=== PATIENT | female | born 1985 | race Hispanic/Latino ===

== ENCOUNTER 2019-10-05 15:34 | Emergency (ER) | payer OTHER ==
[2019-10-05] MEDS ORDERED: NA CHLORIDE 0.9% 1,000 ML ONE (16:06)
[2019-10-05 16:20] LABS: Absolute Lymphocytes (CBC) 2.3 K/uL (0.7-4.9); Basophils % 0.4 % (0-1.3); Hematocrit 37.5 % (36.0-45.0); Lymphocytes % 23.3 % (15.3-44.8); MPV 9.2 fL (7.6-11.3); RBC Red Blood Cell Count 4.08 M/uL (3.86-4.86)
[2019-10-05 17:03] LABS: BUN Blood Urea Nitrogen 11 mg/dL (7-18); Bicarbonate 23 mmol/L (21-32); Glucose Level 99 mg/dL (74-106); HCG, Quantitative 62359 mIU/mL (1-3); Potassium 3.6 mmol/L (3.5-5.1); Sodium Level 138 mmol/L (136-145)
[2019-10-05 17:47] LABS: Urine Bacteria NONE SEEN /HPF (<20); Urine Culture Reflex Order NOT NEEDED
--- NOTE | 2019-10-05 17:58 | EDPHYS ---
Physician Documentation [facility] Name: Mayo Cleveland Age: 34 yrs Sex: Female : 1985 Arrival Date: 10/05/2019 Time: 15:36 Bed 15 Private MD: ED Physician Chace Epps HPI: 10/05 16:00 This 34 yrs old Female presents to ER via Ambulatory with complaints of pm1 Vaginal Bleeding, + Preg <12wks. 16:00 The patient presents to the emergency department with vaginal bleeding, that is light, pm1 reports using 1 pads or tampons per day. 16:00 The estimated gestational age is 8 weeks. course: care: at a clinic, pm1 Ultrasound: the patient had an ultrasound. Previous pregnancies: in previous pregnancies patient has had no complications. Associated signs and symptoms: Pertinent negatives: abdominal pain, chest pain, diarrhea, dysuria, fever, nausea, vomiting. completed ABX therapy of UTI 1 week ago. Presents today with vaginal bleeding onset last night. Light spotting, has used only one pad. No clots. No abdominal pain present. MANAGER ADMINISTRATION: 16:00 4, Full Term 2, 1, Living 2 pm1 18:10 LMP 07/2019 mg2 Historical: - Allergies: 15:51 No Known Allergies; ss - Home Meds: 15:51 Vitamin Oral tab 1 tab once daily [Active]; ss - PMHx: 15:51 None; ss - PSHx: 15:51 None; ss - Immunization history:: Adult Immunizations up to date. - Coronavirus screen:: The patient has NOT traveled to [place], [place], or [place] in the past 14 days. Proceed with normal triage process as indicated. - Social history:: Smoking status: Patient denies any tobacco usage or history of. - Ebola Screening: : Patient denies exposure to infectious person Patient denies travel to an Ebola-affected area in the 21 days before illness onset. ROS: 17:32 Constitutional: Negative for fever, chills, and weight loss, Cardiovascular: Negative pm1 for chest pain, palpitations, and edema, Respiratory: Negative for shortness of breath, cough, wheezing, and pleuritic chest pain, Abdomen/GI: Negative for abdominal pain, nausea, vomiting, diarrhea, and constipation, Back: Negative for injury and pain. 17:32 MS/Extremity: Negative for injury and deformity, Skin: Negative for injury, rash, and discoloration. 17:32 Neuro: Negative for headache, weakness, numbness, tingling, and seizure. 17:32 : Positive for vaginal bleeding, Negative for urinary symptoms, flank pain. Exam: 17:32 Constitutional: This is a well developed, well nourished patient who is awake, alert, pm1 and in no acute distress. Head/Face: Normocephalic, atraumatic. Neck: Trachea midline, no thyromegaly or masses palpated, and no cervical lymphadenopathy. Supple, full range of motion without nuchal rigidity, or vertebral point tenderness. No Meningismus. Chest/axilla: Normal chest wall appearance and motion. Nontender with no deformity. No lesions are appreciated. Cardiovascular: Regular rate and rhythm with a normal S1 and S2. No gallops, murmurs, or rubs. Normal PMI, no JVD. No pulse deficits. Respiratory: Lungs have equal breath sounds bilaterally, clear to auscultation and percussion. No rales, rhonchi or wheezes noted. No increased work of breathing, no retractions or nasal flaring. Abdomen/GI: Soft, non-tender, with normal bowel sounds. No distension or tympany. No guarding or rebound. No evidence of tenderness throughout. Back: No spinal tenderness. No costovertebral tenderness. Full range of motion. Skin: Warm, dry with normal turgor. Normal color with no rashes, no lesions, and no evidence of cellulitis. MS/ Extremity: Pulses equal, no cyanosis. Neurovascular intact. Full, normal range of motion. 17:32 Neuro: Orientation: is normal, Motor: is normal, moves all fours. Vital Signs: 15:47 BP 119 / 72; Pulse 78; Resp 14; Temp 97.7(TE); Pulse Ox 98% on R/A; Weight 63.5 kg; ss Height 5 ft. 2 in. (157.48 cm); 15:47 Pain 0/10; ss 17:04 BP 106 / 79; Pulse 80; Resp 17; Pulse Ox 100% on R/A; mg2 18:09 BP 110 / 76; Pulse 85; Resp 18; Temp 98; Pulse Ox 100% on R/A; mg2 15:47 Body Mass Index 25.61 (63.50 kg, 157.48 cm) ss MDM: 15:37 Patient medically screened. pm1 17:33 Data reviewed: vital signs. Data interpreted: Pulse oximetry: on room air is 100 %. pm1 Interpretation: normal. 17:57 Counseling: I had a detailed discussion with the patient and/or guardian regarding: the pm1 historical points, exam findings, and any diagnostic results supporting the discharge/admit diagnosis, lab results, radiology results, the need for outpatient follow up, to return to the emergency department if symptoms worsen or persist or if there are any questions or concerns that arise at home. 10/05 16:00 Order name: Quantitative Hcg; Complete Time: 17:11 pm1 10/05 16:00 Order name: Abo/rh Typing; Complete Time: 17:15 pm1 10/05 16:00 Order name: Basic Metabolic Panel; Complete Time: 17:11 pm10/05 16:00 Order name: CBC with Diff; Complete Time: 16:23 pm10/05 16:00 Order name: Urine Microscopic Only; Complete Time: 17:57 pm1 10/05 16:01 Order name: Urine Dipstick--Ancillary (enter results) ms 10/05 16:00 Order name: Urine Test (obtain specimen); Complete Time: 16:13 pm10/05 16:00 Order name: IV Saline Lock; Complete Time: 16:13 pm10/05 16:00 Order name: Labs collected and sent; Complete Time: 16:13 pm10/05 16:00 Order name: NPO; Complete Time: 16:13 pm10/05 16:00 Order name: Urine Dipstick-Ancillary (obtain specimen); Complete Time: 16:13 pm10/05 16:01 Order name: Urine --Ancillary (enter results) ms 10/05 16:23 Order name: US Transvaginal Ob; Complete Time: 18:07 pm1 Administered Medications: 16:13 Drug: NS 0.9% 1000 ml Route: IV; Rate: 1000 ml; Site: left antecubital; mg2 18:08 Follow up: Response: No adverse reaction; IV Status: Completed infusion; IV Intake: mg2 1000ml Point of Care Testing: Urine : 18:10 hCG Reading: Positive; Control Reading: Positive; mg2 Disposition: 21:11 Co-signature as Attending Physician, Chace Epps MD I agree with the assessment and kdr plan of care. Disposition: 10/05/19 17:58 Discharged to Home. Impression: Threatened . - Condition is Stable. - Discharge Instructions: Threatened Miscarriage, Pelvic Rest. - Medication Reconciliation Form, Thank You Letter, Antibiotic Education, Prescription Opioid Use form. - Follow up: Emergency Department; When: As needed; Reason: Worsening of condition. Follow up: Private Physician; When: 2 - 3 days; Reason: Recheck today's complaints, Continuance of care, Re-evaluation by your physician. - Problem is new. - Symptoms have improved. Signatures: Dispatcher [employer] EDMS Chace Epps MD MD [facility] Brittany Ayala RN RN ss Abebe Courtney NP MANAGER REVIEW pm1 Ronaldo Walsh RN RN mg2 Corrections: (The following items were deleted from the chart) 18:11 17:58 10/05/2019 17:58 Discharged to Home. Impression: Threatened . Condition mg2 is Stable. Forms are Medication Reconciliation Form, Thank You Letter, Antibiotic Education, Prescription Opioid Use. Follow up: Emergency Department; When: As needed; Reason: Worsening of condition. Follow up: Private Physician; When: 2 - 3 days; Reason: Recheck today's complaints, Continuance of care, Re-evaluation by your physician. Problem is new. Symptoms have improved. pm1
--- NOTE | 2019-10-05 17:58 | ER ---
Nurse's Notes [facility] Name: Mayo Cleveland Age: 34 yrs Sex: Female : 1985 Arrival Date: 10/05/2019 Time: 15:36 Bed 15 Private MD: Diagnosis: Threatened Presentation: 10/05 15:49 Presenting complaint: Patient states: Vaginal bleeding that began last night. Pt ss reports she is 8 weeks . Denies pain. Transition of care: patient was not received from another setting of care. Onset of symptoms was October 04, 2019. Risk Assessment: Do you want to hurt yourself or someone else? Patient reports no desire to harm self or others. Initial Sepsis Screen: Does the patient meet any 2 criteria? No. Patient's initial sepsis screen is negative. Does the patient have a suspected source of infection? No. Patient's initial sepsis screen is negative. Care prior to arrival: None. 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 - Coronavirus screen:: The patient has NOT traveled to [place], [place], or [place] in the past 14 days. Proceed with normal triage process as indicated. - Social history:: Smoking status: Patient denies any tobacco usage or history of. - Ebola Screening: : Patient denies exposure to infectious person Patient denies travel to an Ebola-affected area in the 21 days before illness onset. Screenin:03 Abuse screen: Denies threats or abuse. Denies injuries from another. Nutritional mg2 screening: No deficits noted. Tuberculosis screening: No symptoms or risk factors identified. Fall Risk IV access (20 points). Assessment: 17:02 General: Appears in no apparent distress. comfortable, Behavior is calm, cooperative. mg2 Pain: Denies pain. Neuro: Level of Consciousness is awake, alert, obeys commands, Oriented to person, place, time, situation. Cardiovascular: Capillary refill < 3 seconds Patient's skin is warm and dry. Respiratory: Airway is patent Respiratory effort is even, unlabored, Respiratory pattern is regular, symmetrical. GI: No signs and/or symptoms were reported involving the gastrointestinal system. : Reports vaginal bleeding that is with clots, light flow, since yesterday. EENT: No signs and/or symptoms were reported regarding the EENT system. Derm: Skin is intact, is healthy with good turgor, Skin is pink, warm \T\ dry. normal. Musculoskeletal: Circulation, motion, and sensation intact. Capillary refill < 3 seconds. 18:08 Obstetrical Assessment: General assessment: awake and alert. Reassessment: Patient mg2 appears in no apparent distress at this time. Patient is alert, oriented x 3, equal unlabored respirations, skin warm/dry/pink. Vital Signs: 15:47 BP 119 / 72; Pulse 78; Resp 14; Temp 97.7(TE); Pulse Ox 98% on R/A; Weight 63.5 kg; ss Height 5 ft. 2 in. (157.48 cm); 15:47 Pain 0/10; ss 17:04 BP 106 / 79; Pulse 80; Resp 17; Pulse Ox 100% on R/A; mg2 18:09 BP 110 / 76; Pulse 85; Resp 18; Temp 98; Pulse Ox 100% on R/A; mg2 15:47 Body Mass Index 25.61 (63.50 kg, 157.48 cm) ss Vitals: 18:09 Heart Tones ultrasound done. mg2 ED Course: 15:36 Patient arrived in ED. ag5 15:37 Abebe Courtney NP is PHCP. pm1 15:37 Chace Epps MD is Attending Physician. pm1 15:47 Arm band placed on right wrist. ss 15:50 Triage completed. ss 15:58 Ronaldo Walsh, ROSSY is Primary Nurse. mg2 17:04 Patient has correct armband on for positive identification. Pulse ox on. NIBP on. Door mg2 closed. 17:04 No provider procedures requiring assistance completed. Inserted saline lock: 20 gauge mg2 in left antecubital area, using aseptic technique. Blood collected. 17:44 US Transvaginal Ob In Process Unspecified. EDMS 17:44 Ultrasound completed. Patient tolerated well. Notified [facility] [employer] [employer]ER/PA . sg3 18:08 IV discontinued, intact, bleeding controlled, No redness/swelling at site. Pressure mg2 dressing applied. Administered Medications: 16:13 Drug: NS 0.9% 1000 ml Route: IV; Rate: 1000 ml; Site: left antecubital; mg2 18:08 Follow up: Response: No adverse reaction; IV Status: Completed infusion; IV Intake: mg2 1000ml Point of Care Testing: Urine : 18:10 hCG Reading: Positive; Control Reading: Positive; mg2 Intake: 18:08 IV: 1000ml; Total: 1000ml. mg2 Outcome: 17:58 Discharge ordered by . pm1 18:09 Discharged to home ambulatory. mg2 18:09 Condition: stable 18:09 Discharge instructions given to patient, Instructed on discharge instructions, follow up and referral plans. Demonstrated understanding of instructions, follow-up care. 18:11 Patient left the ED. mg2 Signatures: Dispatcher [employer] EDBrittany Glover RN RN ss Abebe Courtney, AMBER [employer] MA[employer]RIER pm1 Patricia Phillip sg3 Ronaldo Walsh RN RN mg2 Lyla Jones ag5
--- NOTE | 2019-10-05 18:04 | RAD REPORT ---
EXAM DESCRIPTION: US - Transvaginal OB - 10/05/2019 5:44 pm CLINICAL HISTORY: with vaginal bleeding COMPARISON: None. FINDINGS: The uterus is retroverted and measures 9 x 6 x 7 centimeters. A normal appearing gestatio nal sac is present within the endometrium. Within this is a yolk sac and pole with a crown-rump length 2.7 centimeters. Cardiac activity 173 beats per minute. 2 centimeters subchorionic bleed Right and left ovary appear normal. . An adnexal mass is not noted. No significant free fluid is seen. IMPRESSION: Single live intrauterine with an estimated gestational age 9 weeks 2 days RADHA 05/07/2020 2 centimeter subchorionic bleed
[2019-10-05 18:36] VITALS: O2SAT 100
[2019-10-05 18:38] VITALS: BP 110/76; TEMP 98
[2019-10-05 20:48] LABS: Urine Blood 2+ (NEG); Urine Glucose NEGATIVE (NEG); Urine Protein NEGATIVE (NEG)
== END 2019-10-05 18:11 | disposition home or self-care (01) ==
LOC: ER 15:34
DX: O20.0 Threatened abortion (principal); Z3A.08 8 weeks gestation of pregnancy
CPT/HCPCS: 96361; 85025; 80048; 36415; 86900; 81025; 86901; 84702; 76817; 96360; 99284; J7030; 81003; 81015

== ENCOUNTER 2020-05-04 07:38 | Inpatient (IN) | payer OTHER ==
[2020-05-04] MEDS ORDERED: Ringers Lactate 1,000 ML IV PRN (07:50)
[2020-05-04] MEDS ORDERED: NA CIT/CITRIC AC 30 ML ORAL UDC PO ONE (07:53)
[2020-05-04] MEDS ORDERED: FAMOTIDINE 20 MG/2 ML VIAL IV ONE (07:53)
[2020-05-04 07:57] LABS: Absolute Lymphocytes (CBC) 2.5 K/uL (0.7-4.9); Basophils % 0.4 % (0-1.3); Hematocrit 33.4 % (36.0-45.0); Lymphocytes % 32.6 % (15.3-44.8); RBC Red Blood Cell Count 3.86 M/uL (3.86-4.86)
[2020-05-04] MEDS ORDERED: Ringers Lactate 1,000 ML IV SCH (08:00)
[2020-05-04] MEDS ORDERED: CEFAZOLIN 2 GM in NA CHLORIDE 0.9% 100 ML IVPB SCH (08:00)
[2020-05-04] MEDS ORDERED: METOCLOPRAMIDE 10 MG/2mL INJ IV SCH (08:00)
[2020-05-04] MEDS ORDERED: MORPHINE SULFATE/PF 1 MG/ML (10 ML AMP) ONE (08:03)
[2020-05-04] MEDS ORDERED: OXYTOCIN 10 UNIT/ML ML IV ONE ×2 (08:03→08:53)
[2020-05-04] MEDS ORDERED: BUPIVACAINE 0.75% (PF) 2 ML SP ONE (08:03)
[2020-05-04] MEDS ORDERED: CARBOPROST TROME 250 MCG/ML IM ONE (08:06)
[2020-05-04] MEDS ORDERED: METHYLERGONOVINE 0.2MG/ML AMP IM ONE (08:06)
[2020-05-04] MEDS ORDERED: LIDOCAINE 1% MPF 5 ML VIAL ONE (08:09)
[2020-05-04] MEDS ORDERED: CEFAZOLIN/SWI 2gm 2 GM/20 ML SYR ONE (08:12)
[2020-05-04] MEDS ORDERED: DIPHENHYDRAMINE 25 MG TAB/CAP PO PRN (09:10)
[2020-05-04] MEDS ORDERED: BISACODYL 10 MG RECTAL SUPP RC PRN (09:10)
[2020-05-04] MEDS ORDERED: ONDANSETRON 4 MG/2 ML VIAL IV PRN (09:10)
[2020-05-04] MEDS ORDERED: Oxycodone HCl/Acetaminophen 1 TAB TAB PO PRN (09:10)
[2020-05-04] MEDS ORDERED: KETOROLAC 30 MG/ML INJ IV PRN (09:10)
[2020-05-04] MEDS ORDERED: CEFAZOLIN 1GM (PREMIX IV) 1 GM/50 ML BAG IV ONE (09:10)
[2020-05-04] MEDS ORDERED: ACETAMINOPHEN 500 MG TAB PO PRN ×2 (09:10)
[2020-05-04] MEDS ORDERED: ONDANSETRON 4 MG (ODT) TAB PO PRN (09:10)
--- NOTE | 2020-05-04 09:37 | PREOPHP ---
Date of Admission: 05/04/2020 History Of Present Illness: A 34-year-old 3, para 2, 40 weeks gestation, followed by an ante at [facility]. She says she called this morning, told them her bag of water she thought it b roken. They told her to come here first instead of [facility]. I will call somebody at [place] and report this. She came into our facility. She is 3 to 4 cm, breech presentation. She is melyssa regula rly. Discussion with the patient and her significant other. She has decided to proceed with cesarea n section. Infection, blood loss, anesthetic complications, injury to bladder, bowel, ureter, postop erative complications, clots in legs, pneumonia discussed. The patient knows fully well this does no t constitute all the possible problems that could occur during or following surgery. She has had not jv to eat since 2 a.m. Anesthesia is here. Specialist Managers surgeon is here. Pediatric is here. We denise l proceed expeditiously. Family History: She has no significant family history. Allergies: NO ALLERGIES. Physical Examination: HEENT: Clear. Pupils are equal, round, reactive to light and accommodation. Conjunctivae well perf used. No oral, lingual, or buccal lesions. Chest and Lungs: Clear. Heart: Without murmurs, thrills, heaves, rubs. Breasts: Not examined. Abdomen: Term size. Extremities: Clear without edema, cyanosis, or clubbing. Plan: We will proceed with expeditious for breech in labor. KELSIE/ABIEL Voice ID: [id number]
[2020-05-04] MEDS ORDERED: D5LR 1,000 ML with OXYTOCIN 20 UNIT IV SCH ×2 (10:00)
[2020-05-04] MEDS ORDERED: OXYTOCIN/LR 20 UNIT/1,000 ML BAG IV SCH (10:00)
[2020-05-04 10:20] VITALS: BMI 31.8
[2020-05-04] MEDS ORDERED: CEFAZOLIN/SWI 2gm 2 GM/20 ML SYR IV SCH (16:00)
[2020-05-04] MEDS ORDERED: Ringers Lactate 3,000 ML IV ONE (17:52)
--- NOTE | 2020-05-04 19:08 | OP ---
Surgeon: Cayden Burden MD Indications: A 34-year-old 3, para 2, 40 weeks' gestation, followed antepartum with [facility]. This morning, she thought she ruptured membranes, called the [facility] and she was told to co me here instead of there for assessment. This is of course inappropriate. The patient came to our f acility. She is 3 to 4 cm, footling to compound breech. This was discussed with the patient's famil y. We decided to proceed with section. Infection; blood loss; anesthetic complications; in jury to bladder, bowel, ureter; postoperative complications; clots in legs; and pneumonia discussed. The patient knows fully well this does not constitute all the possible problems that could occur dur ing or following surgery. Description Of Procedure: Taken to surgery. Spinal block was performed. Prepping and draping was t hen performed and time-out. The patient was given 2 g of Ancef for prophylaxis. A Pfannenstiel inci sofya was created. The incision was carried to the fascia. The fascia was incised and incision brenda ed transversely bilaterally. Anterior fascial plane was developed with both blunt and sharp dissecti on. Diastasis recti was observed. Peritoneum was entered bluntly. Low-transverse bladder flap deve loped. Low-transverse uterine incision created. 7 pounds 11 ounces female delivered through the inc ision without difficulty. Apgars [address] Silva in pediatric attendance. Cord blood spec imen obtained. Placenta removed manually. Uterus cleared of clot and blood and exteriorized. Cervi vinay os cleared of membranes. Uterus closed with a running lock stitch of 1 chromic, followed by imbr icating stitch of 1 chromic. Small bleeder in the left angle, more of ooze, fulgurated with Bovie. Gutters cleared of clot and blood. Uterus replaced in the peritoneal cavity. Inspection of suture l ine showed no further bleeding. The rectus muscles were reapproximated using 2 stitches of 0 Vicryl. Fascia was closed using 1 Vicryl running from either angle to the midline. Subcutaneous tissue chula sed with 2-0 plain. [place] used for the skin. The patient tolerated all procedures well. Transfer red back to her room in good condition. Final Diagnoses: Term intrauterine , 40 weeks, compound breech presentation, primary bob an section, spinal block anesthesia. KELSIE/ABIEL Voice ID: [id number] Report ID: [id number]
[2020-05-05 01:21] LABS: RPR (Rapid Plasma Reagin) NON-REACT (NON-REACT)
--- NOTE | 2020-05-05 07:51 | PN ---
Mayo Cleveland is a 34-year-old 3, para 2, followed antepartum by [facility], noted to be 4 0 weeks. The patient is doing quite well postoperatively. H and H with expected change. Lochia is normal. We will discontinue Goldberg and IV. Begin p.o. intake. She is having little pruritus from th e spinal block. She knows she can take Benadryl as she needs it, but she does not want to take that right now. Full postop talk. The patient knows I need to see her 1 week after she leaves the hospit al for followup. We will go over that again before she leaves. Right now, this morning no reported problems. She is nonimmune to Rubella. We will offer rubella immunization before she leaves the hos pital as well as Tdap. No post spinal block problems at this point. KELSIE/ABIEL Voice ID: [id number] Report ID: [id number]
[2020-05-05] MEDS: IBUPROFEN 600 MG TAB PO PRN ×2 (09:24→20:05)
[2020-05-05] MEDS: MAGNESIUM HYDROXIDE 8% 30 ML PO PRN ×2 (09:38→22:11)
[2020-05-05] MEDS: Oxycodone HCl/Acetaminophen 1 TAB TAB PO PRN ×2 (18:16→22:08)
[2020-05-05] MEDS ORDERED: NA CIT/CITRIC AC 30 ML ORAL UDC ONE (20:05)
[2020-05-06] MEDS: Oxycodone HCl/Acetaminophen 1 TAB TAB PO PRN (04:40)
--- NOTE | 2020-05-06 07:58 | DS ---
A 34-year-old 3, para 2, followed antepartum with [facility], 40 weeks' gestation. Called [facility] the day of delivery, told them she thought her membranes had ruptured and that she was in early labor. They told her to come here to be evaluated instead of their clinic. When the patient w as assessed, she was 3 to 4 cm and compound breech presentation. After discussion with the patient a nd , we decided to proceed with section. This was done under spinal block anesthesia . She was delivered of a 7 pounds 11 ounces infant, Apgars 9 and 9. Routine blood loss. , afebrile, ambulating, voiding. She is Rh positive, nonimmune to rubella. This will be offered bef ore she is dismissed. COVID negative. Strep negative. Dismissed with tramadol for analgesia, altho ugh she may elect to take Motrin instead. She has elected to come to my office next week for staple removal and we will discuss contraception at that time. Final Diagnoses: Term intrauterine , 40 weeks, [facility] patient drop in, compound breech, prima ry section, spinal block anesthesia, rubella immunization offered. KELSIE/ABIEL Voice ID: [id number] Report ID: [id number]
[2020-05-06] MEDS: IBUPROFEN 600 MG TAB PO PRN (08:00)
[2020-05-06] MEDS ORDERED: MEASLES,MUMPS,RUBELLA VAC 0.5ML SQVAC ONE (08:10)
[2020-05-06 10:08] VITALS: BP 118/70; TEMP 97
[2020-05-07 22:18] LABS: HBsAG Nonreactive (Nonreactive)
== END 2020-05-06 09:45 | disposition home or self-care (01) | DRG 788 ==
LOC: 2ND-WC 07:38
PROVIDERS: ADMIT Specialist; ATTEND Specialist
PROC: 10D00Z1 Extraction of Products of Conception, Low, Open Approach (ICD-10-PCS; principal; 2020-05-04 08:30)
DX: O32.1XX0 Maternal care for breech presentation, not applicable or unspecified (principal); Z3A.40 40 weeks gestation of pregnancy; Z37.0 Single live birth; Z03.818 Encounter for observation for suspected exposure to other biological agents ruled out
CPT/HCPCS: 36415; 85014; 85025; 86592; 86900; 86901; 87340; 88307; 90471; 90707; J0690; J2210; J2405; J2590; J2765; J7120; J7121; U0003

== ENCOUNTER 2022-05-16 19:26 | Inpatient (IN) | payer OTHER ==
[2022-05-16 21:11] LABS: Urine Blood 2+ (Negative); Urine Glucose Negative (Negative); Urine Protein Trace (Negative); Urine Specific Gravity <=1.005 (1.005-1.030); Urine pH 6.5 (5.0-7.0)
[2022-05-16] MEDS ORDERED: NA CHLORIDE 0.9% 1,000 ML ONE (21:56)
[2022-05-16] MEDS ORDERED: ONDANSETRON 4 MG/2 ML VIAL ONE (21:56)
[2022-05-16] MEDS ORDERED: ACETAMINOPHEN 500 MG TAB ONE (22:26)
[2022-05-16 23:30] LABS: Absolute Lymphocytes (CBC) 1.7 K/uL (0.7-4.9); Hematocrit 34.5 % (36.0-45.0); Lymphocytes % 11.5 % (15.3-44.8); MPV 8.3 fL (7.6-11.3); RBC Red Blood Cell Count 3.79 M/uL (3.86-4.86)
[2022-05-16 23:32] LABS: Urine Bacteria <20 /HPF (<20); Urine RBC <5 /HPF (None Seen); Urine WBC Clump Occasional /HPF (None Seen)
[2022-05-16 23:38] LABS: Albumin 2.8 g/dL (3.4-5.0); Bilirubin Total 0.6 mg/dL (0.2-1.0); Potassium 3.4 mmol/L (3.5-5.1); Protein, Total 6.7 g/dL (6.4-8.2)
[2022-05-17 00:17] LABS: Urine Specific Gravity/Preg 1.005 (1.005-1.030)
[2022-05-17] MEDS ORDERED: NA CHLORIDE 0.9% 50 ML ONE (00:39)
[2022-05-17] MEDS ORDERED: CEFTRIAXONE 1000 MG/VIAL ONE (00:39)
[2022-05-17] MEDS ORDERED: NA CHLORIDE 0.9% 1,000 ML ONE ×2 (02:23→06:08)
--- NOTE | 2022-05-17 02:48 | RAD REPORT ---
EXAM DESCRIPTION: CTAbdomen Pelvis W Contrast - 05/17/2022 12:22 am CLINICAL HISTORY: lower abdomen pain COMPARISON: No comparisons TECHNIQUE: CT of the abdomen and pelvis was performed. All CT scans are performed using dose optimization technique as appropriate and may include automated exposure control or mA/KV adjustment according to patient size. FINDINGS: Lower chest: No acute abnormality. Liver: No acute abnormality or suspicious lesions. Biliary: No biliary ductal dilatation. Stomach: No significant focal abnormality. Duodenum: No significant focal abnormality. Pancreas: No significant abnormality. Spleen: No significant abnormality. Adrenal: No suspicious lesions. Kidney/ureter: No hydronephrosis. No renal calculi. Patchy enhancement of the left kidney. Retroperitoneum: No retroperitoneal adenopathy. Vascular: No aneurysm. Bowel: No significant focal abnormality. Normal appendix. Peritoneum: No ascites or free air. Bladder: Grossly unremarkable. Reproductive: No adnexal masses. IUD. Bones: No acute fracture. Other: n/a IMPRESSION: Patchy enhancement of the left kidney concerning for pyelonephritis. No abscess. No hydr onephrosis.
--- NOTE | 2022-05-17 03:12 | EDPHYS ---
Physician Documentation [facility] Name: Mayo Cleveland Age: 36 yrs Sex: Female : 1985 Arrival Date: 05/16/2022 Time: 19:31 Bed 24 Private MD: ED Physician Dereje Link HPI: 05/16 21:15 This 36 yrs old Female presents to ER via Ambulatory with complaints of Fever, cp Dizziness, Weakness, Back Pain, Headache, Decreased Appetite. 21:15 The patient reports fever, with an emergency department temperature of 100.6 degrees cp Fahrenheit. Onset: The symptoms/episode began/occurred last week. Associated signs and symptoms: Pertinent positives: abdominal pain, backache, body aches. Severity of symptoms: in the emergency department the symptoms are unchanged despite home interventions. 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 - Social history:: Smoking status: Patient reports the use of cigarette tobacco products, denies chronic smoking, but will smoke occasionally, Patient uses alcohol, occasionally. ROS: 21:20 Constitutional: Positive for body aches, fever, Negative for poor PO intake. cp 21:20 Eyes: Negative for injury, pain, redness, and discharge. cp 21:20 ENT: Negative for drainage from ear(s), ear pain, sore throat, difficulty swallowing, difficulty handling secretions. 21:20 Cardiovascular: Negative for chest pain, palpitations. 21:20 Respiratory: Negative for cough, shortness of breath, wheezing. 21:20 Abdomen/GI: Positive for abdominal pain, Negative for vomiting, diarrhea, constipation. 21:20 Back: Positive for pain at rest. 21:20 : Negative for vaginal bleeding, vaginal discharge. 21:20 Neuro: Positive for weakness, Negative for altered mental status, numbness, tingling. 21:20 All other systems are negative. Exam: 21:25 Constitutional: The patient appears in no acute distress, alert, awake, non-toxic, well cp developed, well nourished. 21:25 Head/Face: Normocephalic, atraumatic. cp 21:25 Eyes: Periorbital structures: appear normal, Conjunctiva: normal, no exudate, no injection, Sclera: no appreciated abnormality, Lids and lashes: appear normal, bilaterally. 21:25 ENT: External ear(s): are unremarkable, Nose: is normal, Mouth: Lips: moist, Oral mucosa: moist, Posterior pharynx: Airway: no evidence of obstruction, patent, erythema, is not appreciated, exudate, is not appreciated. 21:25 Neck: ROM/movement: is normal, is supple, without pain, no range of motions limitations, no meningismus. 21:25 Chest/axilla: Inspection: normal. 21:25 Cardiovascular: Rate: tachycardic, Rhythm: regular. 21:25 Respiratory: the patient does not display signs of respiratory distress, Respirations: normal, no use of accessory muscles, no retractions, labored breathing, is not present, Breath sounds: are clear throughout, no decreased breath sounds, no stridor, no wheezing. 21:25 Abdomen/GI: Inspection: abdomen appears normal, Bowel sounds: active, all quadrants, Palpation: soft, in all quadrants, mild abdominal tenderness, in the right lower quadrant and left lower quadrant, rebound tenderness, is not appreciated, involuntary guarding, is not appreciated. 21:25 Back: pain, that is mild, of the low back area, ROM is normal. 21:25 Neuro: Orientation: to person, place \\T\\ time. Mentation: is normal, Motor: moves all fours, strength is normal, Sensation: is normal. Vital Signs: 19:36 BP 108 / 75; Pulse 107; Resp 18; Temp 99.6(O); Pulse Ox 98% on R/A; Weight 64.41 kg; eh3 Height 5 ft. 2 in. (157.48 cm); Pain 7/10; 21:59 Temp 100.6(O); eh3 22:19 Pain 9/10; eh3 23:10 BP 108 / 65; Pulse 101; Resp 18; Temp 103.2(O); Pulse Ox 99% on R/A; Pain 6/10; eh3 23:51 BP 107 / 58; Pulse 98; Resp 16 S; Temp 100.7(O); Pulse Ox 99% on R/A; as6 05/17 02:17 BP 99 / 68; Pulse 82; Resp 18 S; Temp 98.3(O); Pulse Ox 99% on R/A; as6 05/16 19:36 Body Mass Index 25.97 (64.41 kg, 157.48 cm) eh3 MDM: 05/16 20:58 Patient medically screened. cp 22:00 Differential diagnosis: viral Infection, bacterial infection, bronchitis, pneumonia cp UTI, gastroenteritis, meningitis. 05/17 02:00 ED course: Patient qualifies for severe sepsis due to criteria of: A) urine as source cp of infection. B) temp of 103, HR of 107, WBC of 14.6. C) elevated lactate of 2.4. 03:05 Data reviewed: vital signs, nurses notes, lab test result(s), radiologic studies, CT cp scan, and as a result, I will admit patient. 03:05 Physician consultation: Xiao LAND was contacted at 03:05, regarding admission, to the medical/surgical unit. patient's condition. 05/16 21:09 Order name: CBC with Diff; Complete Time: 23:55 cp 05/16 23:55 Interpretation: Normal except: WBC 14.60; RBC 3.79; HGB 11.7; HCT 34.5; MCV 91.0; MEREDITH% cp 80.8; LYM% 11.5; NEUT A 11.8. 05/16 21:09 Order name: CMP; Complete Time: 23:55 cp 05/16 23:56 Interpretation: Normal except: K 3.4; GLUC 140; BUN 6; ALB 2.8; GLOB 3.9; A/G 0.7. 05/16 21:09 Order name: Lipase; Complete Time: 23:55 cp 05/16 21:09 Order name: Urine Microscopic Only; Complete Time: 23:55 cp 05/17 03:01 Interpretation: Abnormal: UWBC >50. cp 05/16 21:09 Order name: COVID-19 SARS RT PCR (Document "Date of Onset" if Symptomatic); Complete cp Time: :05/16 21:09 Order name: Influenza Screen (a \\T\\ B); Complete Time: 01:21 cp 05/16 21:11 Order name: Urine Dipstick-Ancillary; Complete Time: 22:01 EDMS 05/16 22:01 Interpretation: Normal except: UBLD 2+; UPROT Trace; UESTR 2+. cp 05/16 21:23 Order name: Urine --Ancillary (enter results); Complete Time: 01:21 wm 05/16 23:54 Order name: Urine Culture EDMS 05/16 23:59 Order name: Procalcitonin cp 05/16 23:59 Order name: Lactate cp 05/16 23:59 Order name: Blood Culture Adult (2) cp 05/17 01:07 Order name: Procalcitonin; Complete Time: 01:21 EDMS 05/17 01:15 Order name: Lactate; Complete Time: 01:21 EDMS 05/17 02:09 Interpretation: Reviewed. cp 05/16 21:09 Order name: CT Abd/Pelvis - IV Contrast Only cp 05/16 21:09 Order name: IV Saline Lock; Complete Time: 21:59 cp 05/16 21:09 Order name: Labs collected and sent; Complete Time: 21:59 cp 05/17 02:48 Order name: CT; Complete Time: 03:00 EDMS 05/17 03:16 Order name: Lactate as6 05/17 03:48 Order name: Lactate Sepsis 2 HR Follow-up; Complete Time: 03:53 EDMS 05/17 07:17 Order name: Basic Metabolic Panel EDMS 05/17 07:17 Order name: Magnesium EDMS 05/17 07:18 Order name: CBC with Automated Diff EDMS 05/16 21:09 Order name: Urine Dipstick-Ancillary (obtain specimen); Complete Time: 21:13 cp 05/16 21:09 Order name: Urine Test (obtain specimen); Complete Time: 21:13 cp Administered Medications: 05/16 21:59 Drug: NS 0.9% 1000 ml Route: IV; Rate: 1 bolus; Site: left antecubital; eh3 23:08 Follow up: IV Status: Completed infusion; IV Intake: 1000ml eh3 21:59 Drug: Zofran (Ondansetron) 4 mg Route: IVP; Site: left antecubital; eh3 23:09 Follow up: Response: Nausea is decreased eh3 22:19 Drug: Tylenol 1000 mg Route: PO; eh3 23:08 Follow up: Response: Temperature is increased; Pain is decreased eh3 05/17 00:42 Drug: Rocephin (cefTRIAXone) 1 grams Route: IV; Rate: calculated rate; Site: left as6 antecubital; 07:16 Follow up: Response: No adverse reaction; IV Status: Completed infusion; IV Intake: [id number] 02:18 Drug: NS 0.9% 1000 ml Route: IV; Rate: 1 bolus; Site: left antecubital; 07:16 Follow up: Response: No adverse reaction; IV Status: Completed infusion; IV Intake: as6 1000ml 03:25 Drug: Potassium Effervescent Tablet 25 mEq Route: PO; 07:16 Follow up: Response: No adverse reaction as6 Disposition Summary: 05/17/22 03:11 Hospitalization Ordered Hospitalization Status: Inpatient Admission cp Provider: Manny Snell cp Condition: Stable cp Problem: new cp Symptoms: have improved cp Bed/Room Type: Standard cp Location: Telemetry/MedSurg (Inpatient)(05/17/22 12:35) dw Room Assignment: [facility](05/17/22 12:35) dw Diagnosis - Sepsis, unspecified organism cp - Pyelonephritis acute cp Forms: - Medication Reconciliation Form cp - SBAR form cp Signatures: Dispatcher [employer] EDMS Abi Ramos RN RN dw Page, Corey, PA PA cp Elvira Lee RN RN cg Ricardo Taylor RN RN as6 Brown, Sophia, PA PA sb3 Mackenzie Meneses RN RN eh3 Corrections: (The following items were deleted from the chart) 05/16 22:44 21:53 Abdomen ordered. EDMS EDMS 23:56 23:55 Normal except: K 3.4; GLUC 140; BUN 6. cp cp 05/17 04:25 02:00 ED course: Patient qualifies for severe sepsis due to criteria of: A) urine as cp source of infection, B) temp of 103, HR of 107, WBC of 14.6. C) elevated lactate of . cp 04:28 03:11 Telemetry/MedSurg (Inpatient) cp cg 04:28 03:11 cp cg 12:35 04:28 [facility] ER HOLD cg dw 12:35 04:28 ERHOLD- cg dw
--- NOTE | 2022-05-17 03:12 | ER ---
Nurse's Notes [facility] Name: Mayo Cleveland Age: 36 yrs Sex: Female : 1985 Arrival Date: 05/16/2022 Time: 19:31 Bed 24 Private MD: Diagnosis: Sepsis, unspecified organism;Pyelonephritis acute Presentation: 05/16 19:33 Chief complaint: Patient states: fever, body aches, shaking since Sunday. Ebola Screen: [facility] No symptoms or risks identified at this time. 19:33 Method Of Arrival: Ambulatory 3 19:36 Coronavirus screen: Vaccine status: Patient reports receiving the 2nd dose of the covid eh3 vaccine. No acute neurological deficit is noted. Initial Sepsis Screen: Does the patient meet any 2 criteria? HR > 90 bpm. Does the patient have a suspected source of infection? No. Patient's initial sepsis screen is negative. Risk Assessment: Do you want to hurt yourself or someone else? Patient reports no desire to harm self or others. Onset of symptoms was May 12, 2022. 19:36 Acuity: LEENA 3 eh3 Triage Assessment: 19:38 The onset of the patients symptoms was more than six hours ago. General: Appears in no eh3 apparent distress. comfortable, Behavior is calm, cooperative, appropriate for age. Pain: Complains of pain in left low back and right low back Pain currently is 7 out of 10 on a pain scale. Quality of pain is described as aching, Pain began 2-3 days ago. Is continuous, Alleviated by rest, repositioning, Aggravated by increased activity, Also complains of decreased appetite, nausea, diaphoresis, Current management is with Tylenol. Neuro: Level of Consciousness is awake, alert, obeys commands, Oriented to person, place, time, situation, Reports dizziness, headache in right in left parietal area. Cardiovascular: Capillary refill < 3 seconds Patient's skin is warm and dry. Respiratory: Reports shortness of breath on exertion Airway is patent Respiratory effort is even, unlabored. GI: Abdomen is round non-distended, Reports lower abdominal pain, cramping, nausea. : Reports scant amount of urine, thinks she should be urinating more for how much liquid she's drinking. 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 - Social history:: Smoking status: Patient reports the use of cigarette tobacco products, denies chronic smoking, but will smoke occasionally, Patient uses alcohol, occasionally. Screenin:25 Abuse screen: Denies threats or abuse. Denies injuries from another. Nutritional as6 screening: No deficits noted. Tuberculosis screening: No symptoms or risk factors identified. Fall Risk None identified. Assessment: 23:09 Reassessment: Patient is alert, oriented x 3, equal unlabored respirations, skin eh3 warm/dry/pink. Patient states symptoms have improved. 05/17 13:48 Reassessment: Attempted to call report to ROSSY Conti. Unable to accept report at this vg1 time. Vital Signs: 05/16 19:36 BP 108 / 75; Pulse 107; Resp 18; Temp 99.6(O); Pulse Ox 98% on R/A; Weight 64.41 kg; eh3 Height 5 ft. 2 in. (157.48 cm); Pain 7/10; 21:59 Temp 100.6(O); eh3 22:19 Pain 9/10; eh3 23:10 BP 108 / 65; Pulse 101; Resp 18; Temp 103.2(O); Pulse Ox 99% on R/A; Pain 6/10; eh3 23:51 BP 107 / 58; Pulse 98; Resp 16 S; Temp 100.7(O); Pulse Ox 99% on R/A; as6 05/17 02:17 BP 99 / 68; Pulse 82; Resp 18 S; Temp 98.3(O); Pulse Ox 99% on R/A; as6 05/16 19:36 Body Mass Index 25.97 (64.41 kg, 157.48 cm) 3 ED Course: 05/16 19:31 Patient arrived in ED. ja2 19:38 Triage completed. eh3 19:38 Dereje Resendiz PA is PHCP. cp 19:38 Dereje Link MD is Attending Physician. cp 19:38 Arm band placed on right wrist. eh3 20:54 Ricardo Taylor RN is Primary Nurse. as6 21:59 Inserted saline lock: 20 gauge in left antecubital area, using aseptic technique. Blood 3 collected. 23:08 Urine --Ancillary (enter results) Sent. eh3 23:08 Influenza Screen (a \\T\\ B) Sent. eh3 23:08 COVID-19 SARS RT PCR (Document "Date of Onset" if Symptomatic) Sent. eh3 23:08 CBC with Diff Sent. eh3 23:08 CMP Sent. eh3 23:08 Lipase Sent. eh3 23:08 Urine Microscopic Only Sent. 3 23:52 Bed in low position. Call light in reach. as6 05/17 03:10 Manny Snell is Hospitalizing Provider. 07:16 No provider procedures requiring assistance completed. Patient admitted, IV remains in as6 place. Administered Medications: 05/16 21:59 Drug: NS 0.9% 1000 ml Route: IV; Rate: 1 bolus; Site: left antecubital; 3 23:08 Follow up: IV Status: Completed infusion; IV Intake: 1000ml 3 21:59 Drug: Zofran (Ondansetron) 4 mg Route: IVP; Site: left antecubital; 3 23:09 Follow up: Response: Nausea is decreased eh3 22:19 Drug: Tylenol 1000 mg Route: PO; 3 23:08 Follow up: Response: Temperature is increased; Pain is decreased 3 05/17 00:42 Drug: Rocephin (cefTRIAXone) 1 grams Route: IV; Rate: calculated rate; Site: left as6 antecubital; 07:16 Follow up: Response: No adverse reaction; IV Status: Completed infusion; IV Intake: [id number] 02:18 Drug: NS 0.9% 1000 ml Route: IV; Rate: 1 bolus; Site: left antecubital; as6 07:16 Follow up: Response: No adverse reaction; IV Status: Completed infusion; IV Intake: as6 1000ml 03:25 Drug: Potassium Effervescent Tablet 25 mEq Route: PO; as6 07:16 Follow up: Response: No adverse reaction as6 Medication: 07:16 VIS not applicable for this client. as6 Intake: 05/16 23:08 IV: 1000ml; Total: 1000ml. 3 05/17 07:16 IV: 50ml; Total: 1050ml. as6 07:16 IV: 1000ml; Total: 2050ml. as6 Outcome: 03:11 Decision to Hospitalize by Provider. cp 07:16 Admitted to ER Hold. Please see [facility] for further documentation. as6 07:16 Condition: stable 07:16 Instructed on the need for admit. 14:30 Patient left the ED. ld1 Signatures: Dereje Resendiz PA PA cp Garcia, Victoria, RN RN vg1 Kika Price RN RN ld1 Symone Atkinson Ashby RN RN as6 Mackenzie Meneses, RN RN eh3
[2022-05-17] MEDS ORDERED: POTASSIUM 25 MEQ EFFERV TAB ONE (03:27)
--- NOTE | 2022-05-17 04:03 | P.HP ---
Certification for Inpatient Patient admitted to: Inpatient With expected LOS: <2 Midnights Patient will require the following post-hospital care: None Practitioner: I am a practitioner with admitting privileges, knowledge of patient current condition, hospital course, and medical plan of care. Services: Services provided to patient in accordance with Admission requirements found in Title 42 Section 412.3 of the Code of Federal Regulations Patient History Date of Service: 05/17/22 Reason for admission: Pyelonephritis History of Present Illness: Patient is a 36-year-old female with no medical problems who presented to the ED with complaints of fever, malaise, and UTI symptoms for 4 days. She flagged sepsis with tachycardia and fever. her urine is positive for UTI. Labs significant for WBC 14.6, potassium 3.4, lactic acid 2.4, repeat 2 hours later 2.3. Albumin 2.8, Pro-Brent 0.73. CT abdomen pelvis suggestive of left-sided pyelonephritis. She was given 2 L of fluid, 1 g Tylenol, and Rocephin in the ED. She is admitted for further evaluation and treatment. Allergies No Known Allergies Allergy (Unverified 05/04/20 07:49) Home medications list reviewed: Yes Home Medications: Pnv 67/Iron Ps/Folate No.1/Dha [Vitafol Ultra Softgel] 1 cap PO DAILY 05/06/20 Tramadol HCl [Ultram] 50 mg PO Q6HR #30 tablet 05/06/20 - Past Medical/Surgical History Diabetic: No -: x2 -: Umbilical Hernia -: Psychosocial/ Personal History: Patient lives at home with her family. - Family History Father -: Hypertension, Diabetes - Social History Smoking Status: Current some day smoker Alcohol use: Yes CD- Drugs: No Caffeine use: No Place of Residence: Home Review of Systems General: Fever, Malaise Genitourinary: Dysuria, Frequency, Urgency Physical Examination - Physical Exam General: Alert, In no apparent distress HEENT: Atraumatic, PERRLA, EOMI, Sclerae nonicteric Neck: Supple, 2+ carotid pulse no bruit, No LAD, Without JVD or thyroid abno rmality Respiratory: Clear to auscultation bilaterally, Normal air movement Cardiovascular: Regular rate/rhythm, Normal S1 S2 Gastrointestinal: Normal bowel sounds, No tenderness Musculoskeletal: No tenderness Integumentary: No rashes Neurological: Normal speech, Normal strength at 5/5 x4 extr, Normal tone, Normal affect - Studies Laboratory Data (last 24 hrs) 05/16/22 23:00: Sodium 138, Potassium 3.4 L, BUN 6 L, Creatinine 0.80, Glucose 140 H, Total Bilirubin 0.6, AST 29, ALT 35, Alkaline Phosphatase 80, Lipase 51 L 05/16/22 23:00: WBC 14.60 H, Hgb 11.7 L, Hct 34.5 L, Plt Count 218 Microbiology Data (last 24 hrs): 05/16/22 23:00 Nasopharnyx Influenza Type A Antigen Screen - Final 05/16/22 23:00 Nasopharnyx Influenza Type B Antigen Screen - Final Assessment and Plan - Problems (Diagnosis) (1) Pyelonephritis Current Visit: Yes Status: Acute (2) Sepsis Current Visit: Yes Status: Acute Qualifiers: Sepsis type: sepsis due to unspecified organism Sepsis acute organ dysfunction status: without acute organ dysfunction Qualified Code(s): A41.9 - Sepsis, unspecified organism - Plan -Continue IV rocephin. Follow urine cultures -Morphine and zofran PRN -Continue IV hydration -Tylenol PRN fever -Monitor and replete electrolytes per protocol -Reconcile and continue home medications -Lovenox for VTE ppx -Full code Discharge Plan: Home Plan to discharge in: 48 Hours - Advance Directives Does patient have a Living Will: No Does patient have a Durable POA for Healthcare: No - Code Status/Comfort Care Code Status Assessed: Yes (Full) Critical Care: No Time Spent Managing Pts Care (In Minutes): 50
[2022-05-17] MEDS ORDERED: ONDANSETRON 4 MG/2 ML VIAL IV PRN (04:30)
[2022-05-17] MEDS: NA CHLORIDE 0.9% 1,000 ML IV SCH ×2 (05:16→14:57)
[2022-05-17 05:55] VITALS: BMI 25.9
[2022-05-17] MEDS: MORPHINE 2 MG/ML SYR IV PRN ×3 (06:04→18:37)
[2022-05-17] MEDS ORDERED: MORPHINE 2 MG/ML SYR ONE (06:07)
[2022-05-17 07:04] LABS: Absolute Lymphocytes (CBC) 1.3 K/uL (0.7-4.9); Hematocrit 35.4 % (36.0-45.0); Lymphocytes % 8.9 % (15.3-44.8); MCV 90.1 fL (80-100); MPV 7.7 fL (7.6-11.3); RBC Red Blood Cell Count 3.94 M/uL (3.86-4.86)
[2022-05-17 07:17] LABS: Magnesium 1.9 mg/dL (1.8-2.4); Potassium 3.5 mmol/L (3.5-5.1)
[2022-05-17] MEDS: ENOXAPARIN 40 MG/0.4 ML SQ SCH (09:00)
[2022-05-17] MEDS ORDERED: ENOXAPARIN 40 MG/0.4 ML SQ ONE (09:24)
[2022-05-17] MEDS: ACETAMINOPHEN 500 MG TAB PO PRN ×2 (09:47→23:37)
[2022-05-17] MEDS ORDERED: ACETAMINOPHEN 500 MG TAB ONE (09:55)
--- NOTE | 2022-05-17 17:00 | P.PN ---
Date of Service: 05/17/22 Patient with persistent fever. She is complaining of bilateral flank pain, worse on the left. She meets criteria for sepsis Diagnosis: Acute pyelonephritis Sepsis Plan: Continue IV antibiotic IV hydration Diet as tolerated. Follow cultures. Pain management as needed.
[2022-05-17 20:00] LABS: Specific Gravity < 1.005 (1.005-1.030); Urine Bacteria <20 /HPF (<20); Urine Bilirubin NEGATIVE (Negative); Urine Blood 1+ (Negative); Urine Clarity Clear (Clear); Urine Color Colorless (Yellow); Urine Glucose NEGATIVE (Negative); Urine Mucus Slight /HPF (None Seen); Urine Protein NEGATIVE (Negative); Urine RBC <5 /HPF (None Seen); Urine Urobilinogen Normal (Normal); Urine pH 5.5 (5.0-7.0)
[2022-05-17] MEDS: CEFTRIAXONE 1,000 MG in NA CHLORIDE 0.9% 50 ML IVPB SCH (20:04)
[2022-05-18] MEDS: NA CHLORIDE 0.9% 1,000 ML IV SCH ×3 (01:43→22:48)
[2022-05-18 05:42] LABS: Hematocrit 32.9 % (36.0-45.0); Lymphocytes % 26.1 % (15.3-44.8); MCV 89.5 fL (80-100); MPV 7.9 fL (7.6-11.3); RBC Red Blood Cell Count 3.68 M/uL (3.86-4.86)
[2022-05-18 05:58] LABS: Magnesium 1.9 mg/dL (1.8-2.4); Potassium 3.3 mmol/L (3.5-5.1)
[2022-05-18] MEDS ORDERED: POTASSIUM 25 MEQ EFFERV TAB PO ONE (06:27)
[2022-05-18] MEDS: ENOXAPARIN 40 MG/0.4 ML SQ SCH (08:08)
[2022-05-18] MEDS: MORPHINE 2 MG/ML SYR IV PRN ×4 (08:08→22:43)
--- NOTE | 2022-05-18 12:12 | RAD REPORT ---
EXAM DESCRIPTION: CT - Soft Tissue Neck W/Contr CLINICAL HISTORY: Sepsis with neck pain COMPARISON: No comparisons TECHNIQUE All CT scans are performed using dose optimization technique as appropriate and may includ e automated exposure control or mA/KV adjustment according to patient size. FINDINGS: Nasopharyngeal tissues are normal in appearance. Fossa Rosenmller are normal. Parapharyngeal fat triangles are symmetric. Tongue base structures are normal. Epiglottis and aryepiglottic folds are normal. Piriform sinuses are well aerated. The vocal cords are normal in appearance. Salivary glands are normal in appearance. Upper lung chen are clear. Included intracranial contents are unremarkable. IMPRESSION: No acute soft tissue abnormality within the neck. No prevertebral edema or evidence of a n abscess.
[2022-05-18] MEDS: ACETAMINOPHEN 500 MG TAB PO PRN (14:16)
[2022-05-18] MEDS: LIDOCAINE 4% PATCH TOP SCH (14:34)
[2022-05-18] MEDS: CYCLOBENZAPRINE 10 MG TAB PO PRN (14:35)
--- NOTE | 2022-05-18 14:44 | P.PN ---
Subjective Date of Service: 05/18/22 Chief Complaint: Pyelonephritis Patient complaining of neck pain which started last night. No fever since yesterday evening. Physical Examination - Vital Signs Temperature: 97.8 F Blood Pressure: 111/72 Pulse: 84 Respirations: 18 Pulse Ox (%): 97 Assessment And Plan - Current Problems (Diagnosis) (1) Neck pain Current Visit: Yes Status: Acute (2) Pyelonephritis Current Visit: Yes Status: Acute (3) Sepsis Current Visit: Yes Status: Acute Qualifiers: Sepsis type: sepsis due to unspecified organism Sepsis acute organ dysfunction status: without acute organ dysfunction Qualified Code(s): A41.9 - Sepsis, unspecified organism - Plan Physical Exam General: Alert, mild distress due to neck pain. HEENT: Atraumatic, PERRLA, EOMI, Sclerae nonicteric Neck: Supple, No LAD, Without JVD or thyroid abnormality Respiratory: Clear to auscultation bilaterally, Normal air movement Cardiovascular: Regular rate/rhythm, Normal S1 S2 Gastrointestinal: Normal bowel sounds, No tenderness Musculoskeletal: No tenderness Integumentary: No rashes Neurological: Normal speech, Normal strength at 5/5 x4 extr, Normal tone, Normal affect Plan: Blood culture shows no growth to date. Urine culture is growing gram-negative rods Afebrile since yesterday. Continue IV Rocephin. Follow blood cultures and urine culture ID and sensitivity. I suspect neck pain is likely musculoskeletal. CT soft tissue of the neck is unremarkable. Flexeril as needed Pain medications as needed. Diet as tolerated.
[2022-05-18] MEDS: MAGNESIUM HYDROXIDE 8% 30 ML PO PRN (18:15)
[2022-05-18] MEDS ORDERED: CEFTRIAXONE 1000 MG/VIAL ONE (20:10)
--- NOTE | 2022-05-18 20:48 | CON ---
Subjective: The patient is a 36-year-old female. I was consulted for pyelonephritis and leukocytosi s. Patient presented to the emergency room with fever, urinary tract infectious symptoms of 4 days o f burning urination and frequency as per patient because lying in the emergency room caused her to de velop some neck discomfort. The patient had a CT scan of the area, which did not show any abnormal f inding. On initial admission, the patient's white count was 14.6. Her WBC was down to 11.6. She phelps s been currently on IV Rocephin. Her urine cultures are growing more than 100,000 colonies of gram-n egative bacteria. Blood cultures are negative for 24 hours. Past Medical History: Umbilical hernia, . Social History: Tobacco positive. Alcohol is social. Family History: Noncontributory. Medications: Rocephin. See MAR for other medications. Allergies: NO KNOWN DRUG ALLERGIES. Review of Systems: Ten-point review was performed. Physical Examination: General: This is a 36-year-old female, sitting in bed, not in any acute cardiopulmonary distress. Vital Signs: Temperature 97.8, pulse 84, respirations 18, blood pressure 111/72. HEENT: Unremarkable. Neck: Tenderness on palpation. Lungs: Clear to auscultation. Heart: S1, S2. Regular. Abdomen: Soft. Tenderness noted in the left flank area. Extremities: No edema. Laboratory Data: WBC 11.6 down from 14.7, hemoglobin 11.3, platelets 190. Chemistry; sodium 141, po tassium 3.3, chloride 109, bicarb 25, BUN is 4, creatinine 0.7, glucose 116. Albumin level is 2.8. Urinalysis shows more than 50 wbc's on 05/16 yesterday, day before yesterday was 5 to 10. Micro data urine cultures are growing gram-negative rods. Sensitivity and specificity pending. CTA abdomen an d pelvis shows patient has left kidney patchy enhancement, possible for pyelonephritis. No abscess o r hydronephrosis noted. Assessment And Plan: A 36-year-old female with left-sided pyelonephritis and urine cultures are grow ing gram-negative rods. Patient responding to Rocephin, most likely Escherichia coli. Sensitivity a nd specificity pending. We will continue antibiotic for 2 weeks. If blood cultures remain negative, we will continue until Sunday and switch to oral antibiotic depending on sensitivity pattern. If blood cultures become positive, we will recommend to continue IV antibiotic until Sunday and repeat b lood cultures. Continue hydration. Recommend to apply lidocaine patch to the neck area, most extrem e muscle discomfort. Moderate protein-calorie malnourishment, anemia of chronic disease. We will fo llow patient closely. Thank you Dr. Snell for consult. RAMYA/ABIEL Voice ID: [id number] Report ID: [id number]
[2022-05-18] MEDS: CEFTRIAXONE 1,000 MG in NA CHLORIDE 0.9% 50 ML IVPB SCH (21:02)
[2022-05-18] MEDS ORDERED: NA CHLORIDE 0.9% 50 ML ONE (21:10)
[2022-05-19] MEDS: CYCLOBENZAPRINE 10 MG TAB PO PRN (02:20)
[2022-05-19 02:46] VITALS: O2SAT 100
[2022-05-19] MEDS: MORPHINE 2 MG/ML SYR IV PRN ×2 (02:51→07:51)
[2022-05-19] MEDS: MAGNESIUM HYDROXIDE 8% 30 ML PO PRN (07:51)
[2022-05-19] MEDS: LIDOCAINE 4% PATCH TOP SCH (07:51)
[2022-05-19] MEDS: NA CHLORIDE 0.9% 1,000 ML IV SCH (07:52)
[2022-05-19] MEDS: ENOXAPARIN 40 MG/0.4 ML SQ SCH (07:55)
[2022-05-19 08:24] VITALS: BP 104/61; TEMP 97.2
--- NOTE | 2022-05-19 09:14 | P.DS ---
Admission Date: 05/17/22 Discharge Date: 05/19/22 Disposition: ROUTINE DISCHARGE Discharge Condition: FAIR Reason for Admission: Pyelonephritis - Problems (1) Neck pain Current Visit: Yes Status: Acute (2) Pyelonephritis Current Visit: Yes Status: Acute (3) Sepsis Current Visit: Yes Status: Acute Qualifiers: Sepsis type: sepsis due to unspecified organism Sepsis acute organ dysfunction status: without acute organ dysfunction Qualified Code(s): A41.9 - Sepsis, unspecified organism Brief History of Present Illness: Patient is a 36-year-old female with no medical problems who presented to the ED with complaints of fever, malaise, and UTI symptoms for 4 days. She flagged sepsis with tachycardia and fever. her urine is positive for UTI. Labs significant for WBC 14.6, potassium 3.4, lactic acid 2.4, repeat 2 hours later 2.3. Albumin 2.8, Pro-Brent 0.73. CT abdomen pelvis suggestive of left-sided pyelonephritis. She was given 2 L of fluid, 1 g Tylenol, and Rocephin in the ED. patient was admitted for further management. Hospital Course: Patient treated with IV Rocephin for acute pyelonephritis. Urine culture grew E. coli sensitive to several antibiotics including cephalosporins and fluoroquinolones and Augmentin. She was seen in consultation by infectious disease Dr. Russo who assisted with management. Blood cultures did not grow any bacteria. She was complaining of neck pain. She had no neck stiffness or headache. CT soft tissue of the neck was normal, no abscess. She has had no fever for greater than 24 hours. Patient is tolerating diet and deemed stable for discharge. She is prescribed Augmentin to continue treatment for the pyelonephritis. Vital Signs/Physical Exam: Temp Pulse Resp BP Pulse Ox 97.2 F 73 16 104/61 100 05/19/22 08:00 05/19/22 08:00 05/19/22 08:00 05/19/22 08:00 05/19/22 08:00 General: Alert, In no apparent distress, Oriented x3 HEENT: Mucous membr. moist/pink Neck: Supple Respiratory: Clear to auscultation bilaterally, Normal air movement Cardiovascular: No edema, Regular rate/rhythm, Normal S1 S2 Gastrointestinal: Soft and benign, Non-distended, No tenderness Musculoskeletal: No swelling Integumentary: No rashes, No cyanosis Neurological: Normal strength at 5/5 x4 extr Laboratory Data at Discharge: WBC 11.60 K/uL (4.3-10.9) H D 05/18/22 05:27 Hgb 11.3 g/dL (12.0-15.0) L 05/18/22 05:27 Hct 32.9 % (36.0-45.0) L 05/18/22 05:27 Plt Count 190 K/uL (152-406) 05/18/22 05:27 Sodium 141 mmol/L (136-145) 05/18/22 05:27 Potassium 4.1 mmol/L (3.5-5.1) 05/19/22 06:11 BUN 4 mg/dL (7-18) L 05/18/22 05:27 Creatinine 0.65 mg/dL (0.55-1.3) 05/18/22 05:27 Glucose 116 mg/dL (74-106) H 05/18/22 05:27 Magnesium 1.9 mg/dL (1.8-2.4) 05/18/22 05:27 Total Bilirubin 0.6 mg/dL (0.2-1.0) 05/16/22 23:00 AST 29 U/L (15-37) 05/16/22 23:00 ALT 35 U/L (12-78) 05/16/22 23:00 Alkaline Phosphatase 80 U/L (45-117) 05/16/22 23:00 Lipase 51 U/L (73-393) L 05/16/22 23:00 Home Medications: Amox/Clavulanate [Augmentin 875-125 Tab] 1 each PO BID #16 tab 05/19/22 Cyclobenzaprine [Flexeril*] 10 mg PO BIDP PRN #20 tab 05/19/22 Lidocaine 4% Patch [Lidoderm 5% Patch*] 1 patch TOP DAILY #5 patch 05/19/22 Tramadol HCl [Ultram] 50 mg PO QID PRN #20 tab 05/19/22 New Medications: Amox/Clavulanate [Augmentin 875-125 Tab] 1 each PO BID #16 tab Cyclobenzaprine [Flexeril*] 10 mg PO BIDP PRN #20 tab PRN Reason: Muscle Spasms Lidocaine 4% Patch [Lidoderm 5% Patch*] 1 patch TOP DAILY #5 patch Tramadol HCl [Ultram] 50 mg PO QID PRN #20 tab PRN Reason: PAIN Diet: Regular Activity: Ad ольга Followup: TIKA BAIG [Primary Care Provider] - 1-2 Weeks Time spent managing pt's care (in minutes): 36
== END 2022-05-19 11:13 | disposition home or self-care (01) | DRG 872 ==
LOC: ER 19:26 → ERHOLD 05-17 04:04 → 4TH 05-17 14:10
PROVIDERS: ADMIT Internal Medicine; ATTEND Internal Medicine
DX: A41.51 Sepsis due to Escherichia coli [E. coli] (principal); N10 Acute pyelonephritis; M54.2 Cervicalgia; F17.210 Nicotine dependence, cigarettes, uncomplicated; Z79.899 Other long term (current) drug therapy; Z20.822 Contact with and (suspected) exposure to COVID-19
CPT/HCPCS: 36415; 70491; 74177; 80048; 80053; 81001; 81003; 81015; 81025; 83605; 83690; 83735; 84132; 84145; 85025; 87040; 87077; 87086; 87088; 87186; 87804; 96361; 96365; 96366; 96375; 99285; J1650; J2001; J2270; J2405; J7030; Q9967; U0003